=== PATIENT | female | born 1960 | race Caucasian/White ===

== ENCOUNTER → 2016-05-16 | Day surgery (SDC) | payer BC ==
[~2016-05-16] MED LIST: APREPITANT 40 MG CAP ONE; LACTATED RINGER'S 1000 ML INJ 1,000 ML ONE; LIDOCAINE 1%/EPINEPHrine 1:100,000 SOLN 30 ML VIAL ONE; MIDAZOLAM HCL 2 MG/2 ML VIAL ONE; ONDANSETRON HCL 4 MG/2 ML VIAL IV PUSH ONE; PROPOFOL 200 MG/20 ML AMP IV ONE
--- NOTE | 2016-05-20 06:52 | TN ---
cc: CRIS MOYER M.D. DATE OF SURGERY 05/16/2016 PREOPERATIVE DIAGNOSIS 6 cm lipomatous mass left upper inner thigh. POSTOPERATIVE DIAGNOSES 6 cm lipomatous mass left upper inner thigh. PROCEDURE Excision of 6 cm lipomatous mass left upper inner thigh with two-layer closure. SURGEON Dr. Cris Moyer REGISTERED [employer]IATE KENNEDY Womack ANESTHESIA Local 1% lidocaine with epinephrine plus TIVA INDICATIONS This is a pleasant 55-year-old woman who has developed increasing discomfort associated with a palpable mass in the upper inner thigh that is clinically consistent with a lipoma. She was desirous of excision. She has had weight loss recently that has made the mass more apparent. INTRAOPERATIVE FINDINGS Consistent with benign lipomatous material removed and sent to pathology. ESTIMATED BLOOD LOSS Minimal DESCRIPTION OF PROCEDURE IN DETAIL The patient identified as Lin Velasco, taken to the operating room, placed in the supine position. Following IV sedation by Anesthesia, the upper inner left thigh was prepped and draped in the usual sterile fashion and was held in a frog-leg position. The proposed incision was made overlying the mass with a marking pen. A time-out procedure was performed. Following completion time-out procedure everyone's satisfaction within the room, the incision was carried out with a scalpel. Local anesthetic was placed generously in and around the incision site and around the palpable mass prior to incision. Hemostasis was controlled with cautery. Dissection continued posteriorly, spreading the subcutaneous fatty tissue off of lipomatous fatty tissue. This allowed for delivery of the majority of the mass through the incision. The remainder of the attachments were divided using sharp dissection, blunt dissection and occasional electrocautery on a small vascular structure. The mass was removed primarily in two large pieces. The wound was then irrigated copiously with saline. Small bleeding points were controlled with electrocautery. The wound was closed in two layers with 3-0 Vicryl and 4-0 Monocryl and dressed with Mastisol, half inch brown Steri-Strips and a Tegaderm with Telfa pad. The patient tolerated the procedure without apparent complication. Sponge, needle and instrument counts were correct at the end of the case. MD KEIRY Salmon/BRENDA /10:23 AM /6:48 AM [facility]
== END | disposition home or self-care (01) ==
LOC: ESDC 08:09
PROVIDERS: ATTEND Surgery Trauma Surgery
DX: D17.24 Benign lipomatous neoplasm of skin and subcutaneous tissue of left leg (principal)
CPT/HCPCS: 00400; 27337; 88304; J2250; J2405; J3010; J7120; J8501